=== PATIENT | male | born 1945 | race Caucasian/White ===

== ENCOUNTER → 2020-02-17 | Outpatient (CLI) | payer OTHER, MEDICARE ==
[~2020-02-17] MED LIST: DOXYCYCLINE HYC50 M1 PO; ENDOCET 10-3251 EACH; HYDROCODON-ACE1 EAC1 PO; HYDROCODON-ACE1 EAC5 PO; LYRICA PO; LYRICA300 MG PO; PERCOCET 5-3251 EACH PO; RED YEAST RICE600 MG PO; SAW PALMETTO C1 EACH PO
== END ==
LOC: LAB 12:27
PROVIDERS: ATTEND Nurse Practitioner
DX: U07.1 COVID-19 (principal)

== ENCOUNTER 2020-02-25 11:35 | Inpatient (IN) | payer OTHER, MEDICARE ==
[~2020-02-25] VITALS: Ht 177.8 cm; Wt 102.5 kg
[2020-02-25 11:45] VITALS: BP 113/58
[2020-02-25 12:42] LABS: ABSOLUTE NEUTROPHILS 6.8 thou/uL (1.4-8.2); BASOPHILS 0.7 % (0.0-2.0); HEMATOCRIT 40.1 % (42.0-52.0); HEMOGLOBIN 13.5 gm/dL (14.0-18.0); LYMPHOCYTES 12.3 % (24.0-44.0); MCHC 33.7 g/dL (28.0-37.0); MCV 86.2 fL (80.0-100.0); MONOCYTES 10.4 % (1.0-8.0); PLATELET COUNT 373 thou/uL (150-400); POLYS 75.6 % (36.0-66.0); RBC 4.65 mil/uL (4.50-6.00); RDW 13.6 % (10.5-14.5)
[2020-02-25 12:49] LABS: CALCIUM 8.8 mg/dL (8.5-10.1); CREATININE 1.4 mg/dL (0.7-1.3); POTASSIUM 3.4 mmol/L (3.5-5.1)
[2020-02-25 12:55] LABS: ALBUMIN 2.6 g/dL (3.4-5.0); DIRECT BILIRUBIN 0.3 mg/dL (<0.1-0.2); TOTAL PROTEIN 7.2 g/dL (6.4-8.2)
--- NOTE | 2020-02-25 13:03 | EKG ---
[address] [address] ELECTROCARDIOGRAM REPORT Name: SHERMAN CASTRO [facility] [id number] Admission: 02/25/20 Attend Phys: Discharge: Date of : 47 Report #: [id number] [facility] ED Test Date: 2020-02-25 Test Time: 12:30:11 Pat Name: SHERMAN CASTRO Department: Room: Gender: M Web Applications Administrator: kf : 1945 Requested By: Kayla Gutiérrez Order Number: [id number] MD: Gorge Olivo Measurements Intervals [place] Rate: 67 P: 16 ND: 180 QRS: 18 QRSD: 119 T: 23 QT: 427 QTc: 451 Interpretive Statements Sinus rhythm Nonspecific intraventricular conduction delay Baseline wander in lead(s) I,II,III,aVR,aVL,aVF,V1,V2,V3,V4,V5,V6 Compared to ECG 10/03/2011 11:19:31 Sinus bradycardia no longer present Electronically Signed On 02-25-2020 13:03:32 COSMETICS COUNTER MANAGER by Gorge Olivo [email or web address] <ELECTRONICALLY SIGNED> By: Gorge Olivo MD, FACC 02/25/20 1303 1230 1230 Gorge Olivo MD, FAC /EPI
--- NOTE | 2020-02-25 17:33 | NUR ---
74 year old male presented to the ED c/o feeling weak and diffuse myalgias across his back since 02/15/20. He then got tested for COVID on 02/17/20, which resulted positive. He's been monitoring his pulse ox at home, which has been dipping down to about 89% for the past week. Today, he noticed it dropping into 70's. The patient also notes a fever at 101.0. The patient has been admitted to Dr. Deluna on CC tele and started in the ED on Zithromax and IV fluid. Per ED assessment patient is A & O x4. Patients quinton Smith has been notified via ED MD of admission. Luis May [phone] per ED is listed as DPOA. Noted and called to Registration to update. Called and spoke to son and explained role of CM. Son voiced an understanding. CM to follow for discharge needs.
[2020-02-25] MEDS ORDERED: PREGABALIN300 MG PO (19:27)
[2020-02-25] MEDS ORDERED: HYDROCODON-ACE1 EAC8 PO (19:27)
[2020-02-25] MEDS ORDERED: AMOXICILLIN500 M1 PO (19:27)
[2020-02-25] MEDS ORDERED: MORPHINE SULFAT15 MG PO (19:27)
[2020-02-25 19:29] VITALS: BP 103/47
[2020-02-26 04:00] LABS: ALBUMIN 2.2 g/dL (3.4-5.0); CALCIUM 8.4 mg/dL (8.5-10.1); CREATININE 1.1 mg/dL (0.7-1.3); POTASSIUM 4.2 mmol/L (3.5-5.1); TOTAL BILIRUBIN 0.4 mg/dL (0.2-1.0); TOTAL PROTEIN 6.8 g/dL (6.4-8.2)
[2020-02-26 04:25] LABS: HEMATOCRIT 39.3 % (42.0-52.0); MCH 28.7 pg (26.0-34.0); RBC 4.51 mil/uL (4.50-6.00); RDW 13.4 % (10.5-14.5); WBC 4.8 thou/uL (4.0-11.0)
[2020-02-26 20:14] VITALS: BP 93/47
--- NOTE | 2020-02-26 20:18 | NUR ---
FIRST ATTEMPT AT REPORT
--- NOTE | 2020-02-26 20:35 | NUR ---
SECOND ATTEMPT AT REPORT. BEING TOLD THAT NURSEMICHA IS STILL IN PATIENT ROOM, CHARGE NURSE UNAVAILABLE TO TAKE REPORT. NURSING JAW SKINNER NOTIFIED
[2020-02-26 21:00] VITALS: BP 104/63
[2020-02-27 00:07] VITALS: BP 96/60
--- NOTE | 2020-02-27 04:08 | NUR ---
ADMIT PT ADMITTED TO ROOM 349 FROM ED BEING ADMITTED WITH COVID AND HYPOXIA. PT WAS DIAGNOSED WITH COVID 02/17/20 AND HAS BEEN PROGESSIVELY GETTING WORSE AT HOME O2 SATS DROPPED TO 70'S. CRACKLES HEARD THROUGOUT ALL LUNG MINAYA PT HAS A DRY COUGH. RT TX'S INITIATED PT WEARING 2 LITERS OF O2 SATS 93 TO 96%. IV TO RAC INFUSING NS@80CC/HR REMDESIVIR AND ASCORBIC ACID GIVEN IV ORDERED PT TOLERATED WITH NO DIFFICULTY. SKIN C/D/I NO AREAS OF BREAKDOWN NOTED. CONTINUE POC.
[2020-02-27 04:22] VITALS: BP 98/63
[2020-02-27 06:16] LABS: HEMATOCRIT 36.7 % (42.0-52.0); HEMOGLOBIN 12.1 gm/dL (14.0-18.0); MCH 28.7 pg (26.0-34.0); MCHC 33.1 g/dL (28.0-37.0); MCV 86.8 fL (80.0-100.0); RBC 4.23 mil/uL (4.50-6.00); RDW 13.4 % (10.5-14.5); WBC 9.3 thou/uL (4.0-11.0)
[2020-02-27 06:26] LABS: CALCIUM 8.1 mg/dL (8.5-10.1); CREATININE 1.1 mg/dL (0.7-1.3); DIRECT BILIRUBIN 0.1 mg/dL (<0.1-0.2); PHOSPHORUS 2.5 mg/dL (2.5-4.9); POTASSIUM 4.3 mmol/L (3.5-5.1); TOTAL BILIRUBIN 0.3 mg/dL (0.2-1.0); TOTAL PROTEIN 6.1 g/dL (6.4-8.2)
[2020-02-27 07:25] VITALS: BP 106/70
[2020-02-27 11:35] VITALS: BP 112/71
[2020-02-27 15:19] VITALS: BP 102/58
--- NOTE | 2020-02-27 18:30 | NUR ---
RN ASSUMED PT'S CARE AT 0700AM, PT IS A&OX3, PT IS ON O2 2L/MIN/NC, PT'S VS AND O2SAT ARE STABLE, PT IS CONTINUING IV ABX , PT'S SOB HAS IMPROVED, PT IS ON COVID ISOLATION, PT CAN GET UP CHAIR AND BATH ROOM BY HIMSELF,
[2020-02-27 20:13] VITALS: BP 116/66
--- NOTE | 2020-02-27 23:07 | NUR ---
PT PROGRESSING TOWARDS D/C GOALS. VSS AFEBRILE. SATS 94% ON 1LNC. SCHEDULED MORPHINE GIVEN FOR HAND PAIN. PT IS RESTING QUIETLY PRESENTLY. NO S/S DISTRESS. BED DOWN . CALL LIGHT IN REACH. BED ALARM IS ON. WILL CONTINUE TO MONITOR PT FOR CHANGES.
[2020-02-28 04:04] LABS: ALBUMIN 2.1 g/dL (3.4-5.0); CALCIUM 8.2 mg/dL (8.5-10.1); CREATININE 1.1 mg/dL (0.7-1.3); DIRECT BILIRUBIN 0.1 mg/dL (<0.1-0.2); PHOSPHORUS 3.6 mg/dL (2.6-4.7); POTASSIUM 4.2 mmol/L (3.5-5.1); TOTAL BILIRUBIN 0.3 mg/dL (0.2-1.0); TOTAL PROTEIN 5.9 g/dL (6.4-8.2)
[2020-02-28 04:13] VITALS: BP 104/67
[2020-02-28 05:04] VITALS: BP 123/78
--- NOTE | 2020-02-28 05:22 | NUR ---
Pt progressing well towards d/c goals. VSS afebrile sat 92% on 1LNC. lungs sound diminshed at bases. Unlabored on 1lnc. Encouraged pt o sit up and walk around room during day shift .
[2020-02-28 06:56] VITALS: BP 104/71
[2020-02-28 11:14] VITALS: BP 111/54
[2020-02-28 15:12] VITALS: BP 98/63
--- NOTE | 2020-02-28 15:48 | NUR ---
INITIAL ASSESSMENT: SW reviewed chart and spoke with nursing. Pt was admitted from home due to hypoxia. Pt placed in Enhanced Isolation due to COVID-19. Pt had first positive test on 02/16. Pt is afebrile and is on 1L of O2. Pt is on IV abx, IV steroids and IV lasix. Pt is completing Remdesivir and Ivermectin. Discharge home with possible home O2 is anticipated for tomorrow. SW placed call to pt's room. No answer. SW left voice message for pt's son/DPOA, Luis, to discuss discharge plan. Will need rest/exercise oximetry to qualify for home O2. SW is following to assist as needed with discharge planning.
--- NOTE | 2020-02-28 16:46 | NUR ---
RN ASSUMED PT'S CARE AT 0700AM, PT IS A&OX3, PT IS CONTINUING IV ABX , PT IS O2 1L/MIN/NC, PT 'S VS ARE STABLE, PT DENIES SOB TODAY, PT GETS UP TO BATH ROOM BY HIMSELF,
--- NOTE | 2020-02-28 16:58 | NUR ---
AMBULANCE IS HERE TO PRODUCT TEST SPECIALIST PT NOW.
[2020-02-28 20:37] VITALS: BP 117/63
[2020-02-29 04:23] VITALS: BP 110/56
--- NOTE | 2020-02-29 05:47 | NUR ---
Pt. stated he slept well during the night. O2 at 2L/NC with O2 sat in the low 90's. Scheduled pain med given for chronic hand pain (neuropathy per pt.). Cont. on enhanced precaution , afebrile. Voiding per urinal. Up ad odalis in room with steady gait. Making progress towards care plan goals.
[2020-02-29 06:07] LABS: ALBUMIN 2.1 g/dL (3.4-5.0); CALCIUM 7.5 mg/dL (8.5-10.1); CREATININE 1.2 mg/dL (0.7-1.3); DIRECT BILIRUBIN 0.2 mg/dL (<0.1-0.2); PHOSPHORUS 3.6 mg/dL (2.5-4.9); POTASSIUM 4.1 mmol/L (3.5-5.1); TOTAL BILIRUBIN 0.3 mg/dL (0.2-1.0); TOTAL PROTEIN 5.3 g/dL (6.4-8.2)
[2020-02-29] MEDS ORDERED: PREDNISONE 5 MG5 M1 PO (06:40)
[2020-02-29 06:58] VITALS: BP 116/73
[2020-02-29 09:38] VITALS: BP 116/73
--- NOTE | 2020-02-29 09:58 | NUR ---
DISCHARGE NOTE: BRENNEN reviewed chart and spoke with nursing and attending physician. Pt is medically stable for discharge home today. Orders written for HH and possible home O2. Rest/exercise oximetry ordered this morning to determine home O2 needs. BRENNEN placed call to pt's room. No answer. BRENNEN spoke with pt's son, Ronald, via phone to provide update and discuss discharge plan. BRENNEN provided options for HH/DME companies. No preference voiced. BRENNEN confirmed pt's home address and phone number. Pt's family will be able to provide transportation home. BRENNEN faxed HH referral to [facility] and home O2 referral to [facility]. Notified liaisons of new referrals. Awaiting confirmation of acceptance and rest/exercise oximetry results to send to [facility] for home O2. BRENNEN is following to finalize discharge plans.
[2020-02-29 10:57] VITALS: BP 101/59
== END 2020-02-29 16:17 | disposition home health service (06) | DRG 177 ==
LOC: ER 11:35 → 3W 13:45 → EROBS 13:45 → 3W 02-26 20:41
PROVIDERS: Emergency Medicine; ADMIT Family Medicine; ATTEND Family Medicine
PROC: XW033E5 Introduction of Remdesivir Anti-infective into Peripheral Vein, Percutaneous Approach, New Technology Group 5 (ICD-10-PCS; principal; 2020-02-25)
DX: U07.1 COVID-19 (principal); J96.01 Acute respiratory failure with hypoxia; J12.82 Pneumonia due to coronavirus disease 2019; F41.9 Anxiety disorder, unspecified; G89.29 Other chronic pain; K59.00 Constipation, unspecified; M54.9 Dorsalgia, unspecified; F32.9 Major depressive disorder, single episode, unspecified; Z90.49 Acquired absence of other specified parts of digestive tract; Z79.899 Other long term (current) drug therapy
CPT/HCPCS: 10879